=== PATIENT | male | born 1940 | race Caucasian/White ===

== ENCOUNTER 2016-09-20 11:33 | Inpatient (IN) | payer MEDICARE, MEDICAID ==
[~2016-09-20] VITALS: Ht 172.7 cm; Wt 93.7 kg
[~2016-09-20 11:33] MED LIST: BACITRACIN 50,000 UNIT ONE; BUPIVACAINE/PF-EPI 0.5% 1:200K ONE; HEPARIN 1,000 UNITS/ML, 10ML ONE; LIDOCAINE/PF 1%, 30ML ONE; PAPAVERINE 30 MG/ML, 2ML ONE; PROTAMINE SULFATE 10 MG/ML, 5ML ONE; THROMBIN 20,000 UNIT VIAL TP ONE
[2016-09-20] MEDS ORDERED: LACTATED RINGERS 1,000 ML IV SCH (12:23)
[2016-09-20] MEDS ORDERED: ASPI-496 PO (12:29)
[2016-09-20] MEDS ORDERED: ATOR80TA75 PO (12:29)
[2016-09-20] MEDS ORDERED: ACET325T26 PO (12:29)
[2016-09-20] MEDS ORDERED: OMEP-110 PO (12:29)
[2016-09-20] MEDS ORDERED: DOCU100C8 PO (12:29)
[2016-09-20] MEDS ORDERED: GABA300C10 PO (12:29)
[2016-09-20] MEDS ORDERED: TRAZ100T15 PO (12:29)
[2016-09-20] MEDS ORDERED: CLOP75TA PO (12:29)
[2016-09-20] MEDS ORDERED: MULT-257 PO (12:29)
[2016-09-20] MEDS ORDERED: LIDOCAINE 1%, 2ML SQ PRN (12:30)
[2016-09-20] MEDS ORDERED: LIDOCAINE 1%, 2ML ONE (12:33)
[2016-09-20 12:35] LABS: HEMATOCRIT 46.6 % (39.2-51.8); HEMOGLOBIN 15.3 g/dL (13.7-18.0); WHITE BLOOD COUNT 7.7 x10^3/uL (3.4-10)
[2016-09-20 12:53] LABS: BLOOD UREA NITROGEN 10 mg/dL (7-18)
[2016-09-20] MEDS ORDERED: MIDAZOLAM 1 MG/ML, 2ML ONE (14:36)
[2016-09-20] MEDS ORDERED: FENTANYL PF 250 MCG/5ML ONE (14:36)
[2016-09-20] MEDS ORDERED: PNEUMOCOCCAL 23 VACCINE IM-VACC SCH (15:30)
[2016-09-20] MEDS ORDERED: ROCURONIUM 10 MG/ML ONE (15:40)
[2016-09-20] MEDS ORDERED: DEXAMETHASONE 4 MG/ML, 1ML ONE (15:40)
[2016-09-20] MEDS ORDERED: SUCCINYLCHOLINE 20 MG/ML, 10ML ONE (15:40)
[2016-09-20] MEDS ORDERED: PROPOFOL 10 MG/ML, 20ML ONE (15:40)
[2016-09-20] MEDS ORDERED: ONDANSETRON 2MG/ML, 2ML ONE (15:40)
[2016-09-20] MEDS ORDERED: CEFAZOLIN 1,000 MG ONE (15:40)
[2016-09-20] MEDS ORDERED: GLYCOPYRROLATE 0.2MG/1ML ONE (15:40)
[2016-09-20] MEDS ORDERED: NEOSTIGMINE 1 MG/ML, 10ML ONE (15:40)
[2016-09-20] MEDS ORDERED: HYDROmorphone 1 MG/ML, 1ML IV PRN (17:30)
[2016-09-20] MEDS ORDERED: ACETAMINOPHEN 325 MG TABLET PO PRN (17:30)
[2016-09-20] MEDS ORDERED: hydrALAzine 20 MG/ML, 1ML IV PRN ×2 (17:30→22:00)
[2016-09-20] MEDS ORDERED: FENTANYL PF 100 MCG/2ML IV PRN (17:30)
[2016-09-20] MEDS ORDERED: OXYcodone 5 MG/5 ML ORAL.SOL UDC PO PRN (17:30)
[2016-09-20] MEDS ORDERED: ALBUTEROL SULFATE 2.5 MG/3 ML NPPB PRN (17:30)
[2016-09-20] MEDS ORDERED: MEPERIDINE/PF 25MG/0.5ML IVPush PRN (17:30)
[2016-09-20] MEDS ORDERED: EPHEDRINE 50 MG/ML, 1ML IVPush PRN (17:30)
[2016-09-20] MEDS ORDERED: ONDANSETRON 2MG/ML, 2ML IVPush PRN (17:30)
[2016-09-20] MEDS ORDERED: PROMETHAZINE 25 MG/ML, 1ML IV PRN (17:30)
[2016-09-20] MEDS ORDERED: LABETALOL 5MG/ML, 20ML IV PRN (17:30)
[2016-09-20] MEDS ORDERED: HYDROcodone/APAP 7.5-325MG/15ML UDC PO PRN (17:30)
[2016-09-20] MEDS ORDERED: METOPROLOL 1 MG/ML, 5ML IV PRN (17:30)
[2016-09-20] MEDS ORDERED: FENTANYL PF 100 MCG/2ML ONE (18:36)
[2016-09-20] MEDS ORDERED: HYDROcodone/APAP 7.5-325MG/15ML UDC ONE (18:37)
[2016-09-20] MEDS ORDERED: ASPIRIN 325 MG TABLET EC PO ONE (20:00)
[2016-09-20] MEDS ORDERED: CEFAZOLIN PMX 2GM/100ML 100 ML IVPB SCH (22:00)
[2016-09-20] MEDS ORDERED: LABETALOL 5MG/ML, 20ML IVPush PRN (22:00)
[2016-09-20] MEDS ORDERED: ACETAMINOPHEN 650 MG SUPP PR PRN (22:00)
[2016-09-20] MEDS ORDERED: ONDANSETRON 2MG/ML, 2ML IV PRN (22:00)
[2016-09-20] MEDS ORDERED: MORPHINE SULFATE 4 MG/ML, 1ML IV PRN (22:00)
[2016-09-20] MEDS ORDERED: HYDROcodone/APAP 5/325 TABLET PO PRN (22:00)
[2016-09-20] MEDS ORDERED: TRAZODONE 100MG TABLET PO PRN (22:30)
[2016-09-20] MEDS: CEFAZOLIN PMX 2GM/50ML 50 ML IVPB SCH (22:37)
[2016-09-20] MEDS: LACTATED RINGERS 1,000 ML IV SCH (22:37)
[2016-09-20 23:34] VITALS: BP 116/65
[2016-09-21 00:28] VITALS: BP 112/66
[2016-09-21 04:04] VITALS: BP 107/74
[2016-09-21] MEDS: CEFAZOLIN PMX 2GM/50ML 50 ML IVPB SCH (05:04)
[2016-09-21] MEDS ORDERED: OMEPRAZOLE 20 MG CAPSULE.DR PO SCH (07:30)
[2016-09-21 08:20] VITALS: BP 125/75
[2016-09-21] MEDS ORDERED: DOCUSATE 100 MG CAPSULE PO SCH (09:00)
[2016-09-21] MEDS ORDERED: ASPIRIN 325 MG TABLET EC PO SCH (09:00)
[2016-09-21] MEDS ORDERED: MULTIVITAMIN 1 TABLET PO SCH (09:00)
[2016-09-21] MEDS ORDERED: CLOPIDOGREL 75 MG TABLET PO SCH (09:00)
[2016-09-21] MEDS ORDERED: SODIUM CHLORIDE FLUSH 10ML SYR IVF SCH (09:00)
[2016-09-21] MEDS ORDERED: GABAPENTIN 300 MG CAPSULE PO SCH (09:00)
[2016-09-21] MEDS: LACTATED RINGERS 1,000 ML IV SCH (09:59)
[2016-09-21] MEDS ORDERED: ATORVASTATIN 80 MG TABLET PO SCH (21:00)
== END 2016-09-21 11:28 | disposition home or self-care (01) | DRG 39 ==
LOC: ORIP 11:33 → EDSTATUS 14:30 → 4NOR 20:48 → DCLOUNGE 09-21 11:05
PROVIDERS: ADMIT Surgery; ATTEND Surgery
PROC: 03CL0ZZ Extirpation of Matter from Left Internal Carotid Artery, Open Approach (ICD-10-PCS; 2016-09-20)
PROC: 03UJ0KZ Supplement Left Common Carotid Artery with Nonautologous Tissue Substitute, Open Approach (ICD-10-PCS; 2016-09-20)
PROC: 03UL0KZ Supplement Left Internal Carotid Artery with Nonautologous Tissue Substitute, Open Approach (ICD-10-PCS; 2016-09-20)
PROC: 03CJ0ZZ Extirpation of Matter from Left Common Carotid Artery, Open Approach (ICD-10-PCS; principal; 2016-09-20 14:30)
DX: I65.22 Occlusion and stenosis of left carotid artery (principal); E78.5 Hyperlipidemia, unspecified; K21.9 Gastro-esophageal reflux disease without esophagitis; Z86.73 Personal history of transient ischemic attack (TIA), and cerebral infarction without residual deficits; Z79.899 Other long term (current) drug therapy
CPT/HCPCS: 36415; 80048; 85025; 86850; 86900; 93005; C1729; J0690; J1100; J1644; J2250; J2405; J2704; J2710; J2720; J3010; J3490; C1768; J0330; J2440; J7120